=== PATIENT | female | born 1930 | race Caucasian/White ===

== ENCOUNTER 2017-11-23 16:16 | Inpatient (IN) | payer MEDICARE ==
[~2017-11-23] VITALS: Ht 162.6 cm; Wt 46.3 kg
[2017-11-23] MEDS: IV NORMAL SALINE 1,000ML 1,000 ML IV SCH (17:00)
[2017-11-23 17:03] VITALS: BP 186/93
[2017-11-23 17:33] LABS: BASO % 1 % (0-3); EOS # 0.1 x10^3/uL (0.0-0.7); EOS % 2 % (0-3); HEMATOCRIT 35.4 % (36.0-47.0); HEMOGLOBIN 11.8 g/dL (12.0-15.5); LYMPH # 1.6 x10^3/uL (1.0-4.8); LYMPH % 31 % (24-48); MEAN CORPUSCULAR HEMOGLOBIN 36 pg (25-35); MEAN CORPUSCULAR HGB CONC 33 g/dL (31-37); MEAN CORPUSCULAR VOLUME 108 fL (79-100); MONO # 0.4 x10^3/uL (0.0-1.1); MONO % 7 % (0-9); NEUT # 3.2 x10^3uL (1.8-7.7); NEUT % 60 % (31-73); PLATELET COUNT 234 x10^3/uL (140-400); RED BLOOD COUNT 3.29 x10^6/uL (3.50-5.40); RED CELL DISTRIBUTION WIDTH 14.9 % (11.5-14.5); WHITE BLOOD COUNT 5.3 x10^3/uL (4.0-11.0)
[2017-11-23 17:34] LABS: CALCIUM 9.4 mg/dL (8.5-10.1); GFR 52.2; POTASSIUM 3.7 mmol/L (3.5-5.1)
--- NOTE | 2017-11-23 17:40 | RAD ---
Portable AP view CXR: Clinical indications: Pneumonia. Cough. Comparison: None available. Findings: No acute lung infiltrate or pulmonary edema or lung mass or pneumothorax is seen. There is mild blunting of the left lateral costophrenic angle which may be due to a small pleural effusion or chronic pleural thickening. The heart size, pulmonary vasculature, mediastinum and both michelle are unremarkable. Scoliosis is seen. Impression: No acute lung infiltrate. Small pleural effusion versus chronic pleural thickening on the left side.
[2017-11-23] MEDS ORDERED: HYDR-2766 PO (17:56)
[2017-11-23] MEDS ORDERED: LISI1TAB3 PO (17:56)
[2017-11-23] MEDS ORDERED: NEBI5TAB2 PO (17:56)
[2017-11-23] MEDS ORDERED: ALPR1TAB2 PO (17:56)
[2017-11-23 18:06] LABS: INFLUENZA A PATIENT NEGATIVE (NEGATIVE); INFLUENZA B PATIENT NEGATIVE (NEGATIVE)
[2017-11-23] MEDS: IOHEXOL 300 MG/ML 75 ML VIAL. IV ONE ×2 (18:45→22:30)
[2017-11-23] MEDS ORDERED: ALPRAZolam 0.5 MG TABLET PO PRN (18:45)
[2017-11-23] MEDS ORDERED: ZOLPIDEM 5 MG TABLET. PO PRN (18:45)
[2017-11-23] MEDS ORDERED: CONTRAST GIVEN MC PRN (18:45)
[2017-11-23] MEDS: HYDROcodone/APAP 10/325 1 TAB TABLET PO PRN (21:00)
[2017-11-23 23:05] VITALS: BP 184/102
--- NOTE | 2017-11-23 23:22 | RAD ---
CTA scan of the Chest with Contrast (Pulmonary Embolism protocol) November 23, 2017 Clinical History: Shortness of breath. Technique: After the intravenous administration of 75 cc of Omnipaque 300, contiguous, 0.625 mm axial sections were obtained through the chest. 3 mm axial and 3D MIP coronal and sagittal reconstructed images were obtained. One or more of the following individualized dose reduction techniques were utilized for this study: 1. Automated exposure control. 2. Adjustment of the mA and/or kV according to patient size. 3. Use of iterative reconstruction technique. Findings: Comparison is made to a portable chest radiograph earlier today. No filling defect is seen within the major branches of either pulmonary artery. There is no CT evidence of pulmonary embolism. The heart is borderline enlarged. Atherosclerotic calcification of the thoracic aorta and its branches is noted. The thoracic aorta is tortuous but tapers normally. Minimal dependent subsegmental atelectasis is seen involving both lungs. No area of consolidation, pleural effusion or pneumothorax is seen. Impression: There is no CT evidence of pulmonary embolism. Electronically signed by: Jomar Nguyễn MD (11/23/2017 11:19 PM) [facility]
[2017-11-24 04:59] VITALS: BP 169/77
[2017-11-24] MEDS: IV NORMAL SALINE 1,000ML 1,000 ML IV SCH ×2 (05:46→19:36)
[2017-11-24] MEDS ORDERED: IOHEXOL 240 MG/ML 50ML VIAL. ONE (06:08)
[2017-11-24 07:25] LABS: ALBUMIN 2.9 g/dL (3.4-5.0); ALBUMIN/GLOBULIN RATIO 1.1 (1.0-1.7); CREATININE 0.8 mg/dL (0.6-1.0); GFR 67.5; POTASSIUM 3.2 mmol/L (3.5-5.1); TOTAL BILIRUBIN 0.3 mg/dL (0.2-1.0); TOTAL PROTEIN 5.5 g/dL (6.4-8.2)
[2017-11-24 08:33] VITALS: BP 160/76
[2017-11-24] MEDS ORDERED: LISINOPRIL 10 MG TABLET PO SCH (09:00)
--- NOTE | 2017-11-24 09:34 | RAD ---
CT abdomen and pelvis without intravenous contrast. History: Weight loss, abdominal pain CT scan of the abdomen and pelvis was done with oral contrast but without intravenous contrast. There is minimal linear scarring or atelectasis in the lung bases without other infiltrates. There is no effusion. There is hypertrophic change and mild scoliosis in the lumbar spine. A liver lesion is not identified. Spleen and adrenal glands are normal. A definite pancreatic lesion is not evident. There is slight residual contrast in the renal collecting systems from the recent CT chest. There are probable renal calculi. There is no renal mass. There is no adenopathy. There is moderate stool in the colon. The patient's had previous anterior abdominal wall surgery. Patient's had a hysterectomy. The ovaries appear present and normal in appearance. Bowel pattern is normal. There is no abdominal or pelvic mass evident. There is an old compression fracture of T12. Impression: 1. No abdominal or pelvic mass noted. 2. Old compression fracture T12. 3. Previous abdominal wall surgery. 4. Moderate stool in the colon. 5. Probable tiny upper pole renal calculi.
[2017-11-24] MEDS: hydroCHLOROthiazide 12.5 MG CAPSULE PO SCH (09:48)
[2017-11-24] MEDS: HYDROcodone/APAP 10/325 1 TAB TABLET PO PRN ×2 (09:48→15:33)
[2017-11-24] MEDS: POTASSIUM CHLORIDE 20 MEQ TABLET.ER. PO SCH (09:48)
[2017-11-24] MEDS ORDERED: IPRATRPIUM/ALBUTEROL 0.5/2.5MG 3 ML NEBU. NEB SCH (10:00)
[2017-11-24] MEDS ORDERED: AZITHROMYCIN 250 MG TABLET. PO ONE (10:00)
[2017-11-24] MEDS: MAGNESIUM CHLORIDE ER 64 MG TABLET.ER PO SCH (10:39)
[2017-11-24] MEDS: methylPREDNISolone SOD SUCC PF 40 MG/ML VIAL. IV SCH ×2 (10:39→19:36)
[2017-11-24 11:00] VITALS: BP 135/69
[2017-11-24 11:53] LABS: BILIRUBIN,URINE NEG (NEG); CLARITY,URINE CLEAR; COLOR,URINE YELLOW; GLUCOSE,URINE NEG (NEG)
[2017-11-24 11:54] LABS: BACTERIA,URINE FEW /HPF (0-FEW); NITRITE,URINE NEG (NEG); RBC,URINE 0 /HPF (0-2); SQUAMOUS EPITHELIAL CELL,UR MANY /LPF; UROBILINOGEN,URINE 0.2 mg/dL (0.2 mg/dL)
[2017-11-24] MEDS: cefTRIAXone IV Push 1 GM VIAL. IVP SCH (11:56)
[2017-11-24] MEDS ORDERED: IPRATRPIUM/ALBUTEROL 0.5/2.5MG 3 ML NEBU. NEB PRN (12:45)
[2017-11-24 15:59] VITALS: BP 157/83
[2017-11-24] MEDS: METOPROLOL TART IMMED RELEASE 25 MG TABLET PO SCH ×2 (16:51→19:38)
[2017-11-24] MEDS ORDERED: ONDANSETRON PF 4 MG/2 ML VIAL. IV PRN (19:15)
[2017-11-24 19:21] VITALS: BP 156/78
[2017-11-24] MEDS: ALPRAZolam 0.5 MG TABLET PO SCH (19:37)
[2017-11-24 23:03] VITALS: BP 156/71
[2017-11-25 05:45] VITALS: BP 154/77
[2017-11-25 07:37] LABS: BASO % 0 % (0-3); EOS % 1 % (0-3); HEMATOCRIT 33.3 % (36.0-47.0); HEMOGLOBIN 11.1 g/dL (12.0-15.5); LYMPH # 0.5 x10^3/uL (1.0-4.8); LYMPH % 7 % (24-48); MEAN CORPUSCULAR HEMOGLOBIN 37 pg (25-35); MEAN CORPUSCULAR HGB CONC 33 g/dL (31-37); MEAN CORPUSCULAR VOLUME 109 fL (79-100); MONO # 0.1 x10^3/uL (0.0-1.1); MONO % 2 % (0-9); NEUT # 5.8 x10^3uL (1.8-7.7); NEUT % 90 % (31-73); PLATELET COUNT 172 x10^3/uL (140-400); RED BLOOD COUNT 3.05 x10^6/uL (3.50-5.40); RED CELL DISTRIBUTION WIDTH 14.9 % (11.5-14.5); WHITE BLOOD COUNT 6.5 x10^3/uL (4.0-11.0)
[2017-11-25 08:00] LABS: CALCIUM 8.1 mg/dL (8.5-10.1); CREATININE 0.7 mg/dL (0.6-1.0); GFR 78.8; MAGNESIUM 1.7 mg/dL (1.8-2.4); POTASSIUM 4.7 mmol/L (3.5-5.1)
[2017-11-25] MEDS: MAGNESIUM CHLORIDE ER 64 MG TABLET.ER PO SCH (08:24)
[2017-11-25] MEDS: METOPROLOL TART IMMED RELEASE 25 MG TABLET PO SCH ×2 (08:25→21:15)
[2017-11-25] MEDS: hydroCHLOROthiazide 12.5 MG CAPSULE PO SCH (08:25)
[2017-11-25] MEDS: methylPREDNISolone SOD SUCC PF 40 MG/ML VIAL. IV SCH ×2 (08:25→21:16)
[2017-11-25] MEDS: LISINOPRIL 20 MG TABLET PO SCH (08:25)
[2017-11-25] MEDS: POTASSIUM CHLORIDE 20 MEQ TABLET.ER. PO SCH (08:26)
[2017-11-25] MEDS: IV NORMAL SALINE 1,000ML 1,000 ML IV SCH ×2 (08:30→13:05)
[2017-11-25] MEDS: HYDROcodone/APAP 10/325 1 TAB TABLET PO PRN ×2 (10:16→19:18)
[2017-11-25] MEDS: cefTRIAXone IV Push 1 GM VIAL. IVP SCH (10:16)
[2017-11-25 10:39] VITALS: BP 157/77
[2017-11-25] MEDS: AZITHROMYCIN 250 MG TABLET. PO SCH (13:06)
[2017-11-25 17:26] VITALS: BP 156/73
[2017-11-25 19:20] VITALS: BP 161/56
--- NOTE | 2017-11-25 20:00 | PN ---
DATE: 11/25/2017 SUBJECTIVE: The patient in with acute exacerbation of COPD, having difficulty breathing,, is doing much better, still on IV Solu-Medrol and her antibiotics. She is bringing up the yellow-green phlegm. PHYSICAL EXAMINATION: VITAL SIGNS: Blood pressure 156/70, respiratory rate 18, pulse 82, afebrile. LUNGS: Diminished, but clear than they have been. The patient is making good progress overall and will continue on Solu-Medrol and aggressive pulmonary toilet, make further evaluation on her as indicated. IMPRESSION: Acute exacerbation of chronic obstructive pulmonary disease, abdominal pain, weight loss, and failure to thrive. IMAN PEREZ MD DR: KENN/ana cristina JOB#: [id number] / [id number]
[2017-11-25] MEDS: LACTOBACILLUS RHAMNOSUS GG 1 CAPSULE. PO SCH (21:15)
[2017-11-25] MEDS: ALPRAZolam 0.5 MG TABLET PO SCH (21:15)
[2017-11-25 23:00] VITALS: BP 147/67
--- NOTE | 2017-11-26 | PN ---
DATE: 11/24/2017 SUBJECTIVE: The patient resting fairly comfortably, but still receiving breathing treatments. She is having trouble breathing, coughing up yellow green phlegm. Otherwise, the patient is still receiving some IV antibiotic therapy and breathing treatments. OBJECTIVE: VITAL SIGNS: Blood pressure 156/70, respiratory rate 16, pulse 76, afebrile. GENERAL: The patient alert and oriented. LUNGS: Diminished coarse breath sounds. CARDIOVASCULAR: Regular sinus rhythm. ABDOMEN: Soft, nontender. IMPRESSION: Acute exacerbation of chronic obstructive pulmonary disease. PLAN: As above. Continue to monitor the patient accordingly, make further evaluation on her as indicated. IMAN PEREZ MD DR: KENN/ana cristina JOB#: [id number] / [id number]
[2017-11-26 05:20] VITALS: BP 163/88
[2017-11-26 06:25] LABS: CALCIUM 8.1 mg/dL (8.5-10.1); CREATININE 0.8 mg/dL (0.6-1.0); GFR 67.5; POTASSIUM 4.8 mmol/L (3.5-5.1)
[2017-11-26] MEDS: hydroCHLOROthiazide 12.5 MG CAPSULE PO SCH (08:28)
[2017-11-26 08:29] VITALS: BP 163/88
[2017-11-26] MEDS: POTASSIUM CHLORIDE 20 MEQ TABLET.ER. PO SCH (08:29)
[2017-11-26] MEDS: MAGNESIUM CHLORIDE ER 64 MG TABLET.ER PO SCH (08:29)
[2017-11-26] MEDS: AZITHROMYCIN 250 MG TABLET. PO SCH (08:29)
[2017-11-26] MEDS: LISINOPRIL 20 MG TABLET PO SCH (08:29)
[2017-11-26] MEDS: METOPROLOL TART IMMED RELEASE 25 MG TABLET PO SCH (08:29)
[2017-11-26] MEDS: LACTOBACILLUS RHAMNOSUS GG 1 CAPSULE. PO SCH (08:30)
[2017-11-26] MEDS: cefTRIAXone IV Push 1 GM VIAL. IVP SCH (08:30)
[2017-11-26] MEDS: methylPREDNISolone SOD SUCC PF 40 MG/ML VIAL. IV SCH (08:30)
[2017-11-26] MEDS: HYDROcodone/APAP 10/325 1 TAB TABLET PO PRN (08:35)
[2017-11-26] MEDS ORDERED: Magnesium Chloride Er PO (10:13)
[2017-11-26] MEDS ORDERED: IPRA3AMP NEB (10:13)
[2017-11-26] MEDS ORDERED: LISI1TAB5 PO (10:13)
[2017-11-26] MEDS ORDERED: ZOLP5TAB PO (10:13)
[2017-11-26] MEDS ORDERED: AZIT250T6 PO (10:13)
[2017-11-26] MEDS ORDERED: POTA20TA4 PO (10:13)
[2017-11-26] MEDS ORDERED: METO25TA4 PO (10:13)
[2017-11-26] MEDS: IV NORMAL SALINE 1,000ML 1,000 ML IV SCH (11:40)
--- NOTE | 2017-11-26 12:45 | DS ---
DATE OF DISCHARGE: HOSPITAL COURSE: The patient has recently been diagnosed with pneumonia at another institution, still had the generalized weakness and increased shortness of breath. The patient otherwise made good progress during the rest of her hospitalization, placed on steroids and aggressive pulmonary toilet. The patient made good progress with Solu-Medrol and nebulizer treatments as well as some IV antibiotic therapy. The patient had a CTA of her chest, which was unremarkable. She did have some subsegmental atelectasis noted, probably which was given some of her increased difficulty breathing. The patient's CT abdomen and pelvis because she did experience some weight loss showed an old compression fracture of T12, otherwise did amazingly well. See EMRAD. ACTIVITY: Decreased activity, regular diet. IMPRESSION: Exacerbation of chronic obstructive pulmonary disease, anemia of chronic disease, hyperglycemia, hypomagnesia or low magnesium, [id number] protein malnutrition. PLAN: The patient will be followed up in 7-10 days or sooner as needed. IMAN PEREZ MD DR: KENN/ana cristina JOB#: [id number] / [id number]
== END 2017-11-26 14:00 | disposition home or self-care (01) | DRG 190 ==
LOC: 1 SOUTH 16:30
PROVIDERS: ADMIT Family Medicine; ATTEND Family Medicine
DX: J44.1 Chronic obstructive pulmonary disease with (acute) exacerbation (principal); J18.9 Pneumonia, unspecified organism; J11.00 Influenza due to unidentified influenza virus with unspecified type of pneumonia; E44.0 Moderate protein-calorie malnutrition; M48.54XA Collapsed vertebra, not elsewhere classified, thoracic region, initial encounter for fracture; D63.8 Anemia in other chronic diseases classified elsewhere; E83.42 Hypomagnesemia; D51.0 Vitamin B12 deficiency anemia due to intrinsic factor deficiency; Z68.1 Body mass index [BMI] 19.9 or less, adult; J44.0 Chronic obstructive pulmonary disease with (acute) lower respiratory infection; R73.9 Hyperglycemia, unspecified; R62.7 Adult failure to thrive; G89.29 Other chronic pain; M54.9 Dorsalgia, unspecified; M81.0 Age-related osteoporosis without current pathological fracture; M51.36 Other intervertebral disc degeneration, lumbar region; Z90.710 Acquired absence of both cervix and uterus
CPT/HCPCS: 36415; 71045; 71275; 74176; 80048; 80053; 81001; 82306; 82607; 83605; 83735; 84443; 85025; 85379; 85651; 87086; 87804; J0456; J0696; J2405; J2920; Q9967; J7030